=== PATIENT | female | born 2000 | race Two or more races ===

== ENCOUNTER 2022-08-08 14:13 | Outpatient (CLI) | payer OTHER | END 2022-08-08 14:14 | disposition home or self-care (01) | LOC: LAB 14:13 | DX: U07.1 COVID-19 (principal); Z11.52 Encounter for screening for COVID-19; Z20.822 Contact with and (suspected) exposure to COVID-19; Z20.828 Contact with and (suspected) exposure to other viral communicable diseases; R05.1 Acute cough; R50.9 Fever, unspecified ==